=== PATIENT | female | born 1965 | race Caucasian/White ===

== ENCOUNTER → 2025-01-06 | Outpatient (CLI) | payer OTHER ==
[~2025-01-06] MED LIST: IOHEXOL 350 MG/ML 100ML INFUS..BTL IV ONE
--- NOTE | 2025-01-06 10:29 | HMCIMG ---
CT CARDIAC ANGIO W/CONT. CCTA HISTORY: Dyspnea COMPARISON: None TECHNIQUE: Multiple sequential axial images of the chest were obtained along with the CT angiogram of the chest study. Patient was given 100 cc of Omnipaque through intravenous route. FINDINGS: There is no evidence of pulmonary nodule or parenchymal disease. No pleural effusion or pericardial effusion is seen. There is no evidence of pneumothorax. There are normal size mediastinal and hilar lymph nodes. The heart is not enlarged. Degenerative changes of the thoracolumbar spine are present. 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 No evidence of pulmonary nodule or effusion is seen. Please see CT angiogram report of coronary arteries.
--- NOTE | 2025-01-07 11:11 | CARDIOLOGY ---
RAD REPORT: CORNARY CT ANGIO RADIOLOGY REPORT: CORONARY CT ANGIOGRAPHY DATE: Jan 07, 2025 QUALITY: Excellent CLINICAL HISTORY AND INDICATION: [ chest pain ] TECHNIQUE: After obtaining a preliminary emergency care attendant image, contrast imaging performed on an [employer] [id number] scanner. A dedicated, limited window, coronary imaging protocol was used, with single breath-hold, retrospective ECG gating, and automated arrhythmia rejection. 100 cc of low osmolar contrast agent: Omnipaque 350 was delivered via a 18-gauge IV catheter in the right antecubital fossa, using a power injector and followed by 60 cc of normal saline bolus as a chaser. Collimated images were reformatted at 0.5 mm intervals, and sent to an offline independent workstation for interpretation, using 3D anatomic reconstructions: Curved multiplanar reconstructions, maximum intensity projections, and multiplanar imaging. No metoprolol was administered prior to scanning due to low baseline heart rate. 0.8 mg SL nitroglycerin was given. CORONARY ARTERY DESCRIPTIONS: The coronary arteries arise in normal position. Left main coronary artery: Normal caliber vessel that bifurcates into the LAD and LCx. No stenosis. Left anterior descending coronary artery: Normal caliber vessel and gives rise to diagonal and septal branches. No stenosis. Left circumflex coronary artery: Normal caliber, nondominant and gives rise to a large OM branch. No stenosis. Right coronary artery: Large, dominant vessel giving rise to the PL and PDA branches. No stenosis. CAD-RADs: 0, absence of CAD. Thoracic Aorta: Normal diameter. Daisy Montiel MD Cardiovascular [facility] DAISY MONTIEL MD Jan 07, 2025 11:11
== END | disposition home or self-care (01) ==
LOC: RAH 07:55
PROVIDERS: ATTEND Internal Medicine Cardiovascular Disease
DX: R06.00 Dyspnea, unspecified (principal); M47.815 Spondylosis without myelopathy or radiculopathy, thoracolumbar region; Z98.890 Other specified postprocedural states
CPT/HCPCS: 75574; Q9967